=== PATIENT | male | born 2005 | race Hispanic/Latino ===

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

== ENCOUNTER 2024-10-19 05:36 | Emergency (ER) | payer OTHER, SELFPAY ==
[2024-10-19] MEDS ORDERED: MORPHINE 4 MG/ML SYR ONE ×2 (05:55→08:11)
[2024-10-19] MEDS ORDERED: KETOROLAC 30 MG/ML INJ ONE (05:55)
[2024-10-19] MEDS ORDERED: NA CHLORIDE 0.9% 1,000 ML ONE (05:55)
[2024-10-19] MEDS ORDERED: LORazepam 2 MG/ML VIAL ONE (05:55)
[2024-10-19 06:22] LABS: Absolute Basophils 0.1 K/uL (0-0.5); Absolute Eosinophils 0.1 K/uL (0-0.5); Absolute Lymphocytes (CBC) 4.1 K/uL (0.7-4.9); Absolute Monocytes 0.8 K/uL (0.1-1.3); Absolute Neutrophil 8.5 K/uL (1.8-8.0); Basophils % 0.6 % (0-1.3); Hematocrit 41.7 % (39.6-49.0); Hemoglobin 14.9 g/dL (13.6-17.9); Lymphocytes % 30.1 % (15.3-44.8); MCH 31.6 pg (27.0-35.0); MCHC 35.7 g/dL (32.0-36.0); MCV 88.5 fL (80-100); MPV 7.4 fL (7.6-11.3); Monocytes % 6.1 % (3.3-12.3); Neutrophils % 62.2 % (41.7-73.7); Platelets 459 thou/uL (152-406); RBC Red Blood Cell Count 4.72 M/uL (4.33-5.43); Red Cell Distribution Width 12.7 % (12.1-15.2)
[2024-10-19 06:56] LABS: Anion Gap 18.2 mEq/L (5.0-15.0); Potassium 3.2 mEq/L (3.5-5.1)
--- NOTE | 2024-10-19 08:41 | ER ---
Nurse's Notes [facility] Name: Zaki Ma Age: 19 yrs Sex: Male : 2005 Arrival Date: 10/19/2024 Time: 05:36 Bed 5 Private MD: Diagnosis: Right ankle bimalleolar fracture with lateral displacement. Initial encounter Presentation: 10/19 05:50 Chief complaint: Patient states: I tripped in a hole and I think I broke my ankle. bm8 Coronavirus screen: At this time, the client does not indicate any symptoms associated with coronavirus-19. Ebola Screen: Patient negative for fever greater than or equal to 101.5 degrees Fahrenheit, and additional compatible Ebola Virus Disease symptoms Patient denies exposure to infectious person. Patient denies travel to an Ebola-affected area in the 21 days before illness onset. No symptoms or risks identified at this time. Initial Sepsis Screen: Does the patient meet any 2 criteria? No. Patient's initial sepsis screen is negative. Does the patient have a suspected source of infection? No. Patient's initial sepsis screen is negative. Risk Assessment: Do you want to hurt yourself or someone else? Patient reports no desire to harm self or others. Onset of symptoms was October 19, 2024 at 05:30. 05:50 Method Of Arrival: Wheelchair bm8 05:50 Acuity: FABIOLA 2 bm8 Triage Assessment: 05:51 General: Appears distressed, uncomfortable, Behavior is Smells of alcohol. Pain: bm8 Complains of pain in right leg Pain radiates to right leg Pain currently is 10 out of 10 on a pain scale. Quality of pain is described as aching, throbbing. EENT: No deficits noted. No signs and/or symptoms were reported regarding the EENT system. Neuro: No deficits noted. Level of Consciousness is awake, alert, obeys commands, Oriented to person, place, time, situation, Appropriate for age. Cardiovascular: Denies chest pain, Capillary refill < 3 seconds in bilateral fingers Patient's skin is warm and dry. Respiratory: Airway is patent Respiratory effort is even, unlabored, Respiratory pattern is regular, symmetrical, Breath sounds are clear bilaterally. GI: No signs and/or symptoms were reported involving the gastrointestinal system. : No signs and/or symptoms were reported regarding the genitourinary system. Derm: No signs and/or symptoms reported regarding the dermatologic system. Musculoskeletal: Bony deformity noted of right ankle and anterior aspect of right ankle Swelling present in right leg Reports pain in right leg Pain is 10 out of 10 on a pain scale. Historical: - Allergies: 05:51 No Known Allergies; bm8 - Home Meds: 05:51 None [Active]; bm8 - PMHx: 05:51 None; bm8 - PSHx: 05:51 None; bm8 - Immunization history:: Adult Immunizations up to date. - Infectious Disease History:: Denies. - Social history:: Smoking status: Patient denies any tobacco usage or history of. Patient uses alcohol, only on a social basis. Patient/guardian denies using street drugs. - Family history:: not pertinent. Screenin:18 [facility] ED Fall Risk Assessment (Adult) History of falling in the last 3 months, bm8 including since admission Yes- single mechanical fall (1 pt) Confusion or Disorientation Yes (5 pts) Intoxicated or Sedated Yes (3 pts) Impaired Gait Yes (1 pt) Mobility Assist Device Used Yes (1 pt) Altered Elimination No (0 pt) Score/Fall Risk Level 3 or more points = High Risk Oriented to surroundings, Maintained a safe environment, Educated pt \T\ family on fall prevention, incl call for assistance when getting out of bed, Assessed \T\ reinforced patient's understanding of fall precautions, Hourly rounding (assess needs \T\ fall precautionary measures) done, Used ambulatory aids as needed (educated on \T\ assisted with), Used gait belt as appropriate. Abuse screen: Denies threats or abuse. Nutritional screening: No deficits noted. Tuberculosis screening: No symptoms or risk factors identified. Assessment: 06:18 Reassessment: see triage assessment. bm8 07:02 Reassessment: Patient and/or family updated on plan of care and expected duration. Pain bm8 level reassessed. Patient is alert, oriented x 3, equal unlabored respirations, skin warm/dry/pink. Pain: Complains of pain in right leg Pain currently is 6 out of 10 on a pain scale. Neuro: No deficits noted. Level of Consciousness is awake, alert, obeys commands, Oriented to person, place, time, situation, Appropriate for age. 09:15 Reassessment: Patient appears in no apparent distress at this time. No changes from ld1 previously documented assessment. Patient and/or family updated on plan of care and expected duration. Pain level reassessed. Vital Signs: 05:50 BP 140 / 79; Pulse 124; Resp 20; Temp 98.6; Pulse Ox 100% ; Weight 99.79 kg; Height 5 bm8 ft. 7 in. ; Pain 10/10; 06:18 BP 119 / 80; Pulse 112; Resp 24; Temp 98.6; Pulse Ox 99% ; Pain 8/10; bm8 07:02 BP 161 / 106; Pulse 116; Resp 22; Temp 98.6; Pulse Ox 100% ; Pain 0/10; bm8 05:50 Body Mass Index 34.46 (99.79 kg, 170.18 cm) bm8 05:50 Pain Scale: Adult bm8 06:18 Pain Scale: Adult bm8 07:02 Pain Scale: Adult bm8 [place] Coma Score: 06:18 Eye Response: spontaneous(4). Motor Response: obeys commands(6). Verbal Response: bm8 oriented(5). Total: 15. 07:02 Eye Response: spontaneous(4). Motor Response: obeys commands(6). Verbal Response: bm8 oriented(5). Total: 15. 08:34 Eye Response: spontaneous(4). Motor Response: obeys commands(6). Verbal Response: sp4 oriented(5). Total: 15. ED Course: 05:37 Patient arrived in ED. jj6 05:46 Todd Sawant MD is Attending Physician. sp4 05:50 Jarvis Lozano, RN is Primary Nurse. bm8 05:51 Triage completed. bm8 05:51 Arm band placed on left wrist. bm8 06:18 Patient has correct armband on for positive identification. Bed in low position. Call [facility] light in reach. Side rails up X 1. Adult w/ patient. Client placed on continuous cardiac and pulse oximetry monitoring. NIBP monitoring applied. telemetry monitor on. Pulse ox on. NIBP on. Door closed. Noise minimized. Verbal reassurance given. Head of bed elevated. 06:18 Initial lab(s) drawn, by ma, sent to lab. Inserted saline lock: 22 gauge in right bm8 forearm, using aseptic technique. Blood collected. Flushed with 10 mL NS. Patient maintains SpO2 saturation greater than 95% on room air. 06:36 Tib Fib Right XRAY In Process Unspecified. EDMS 07:[address] Huerta called [facility] [[email or web address]] to start transfer talked to Manda. 08 Dr Tarun james Mayes accepted pt to [facility] [[email or web address] 08 Admin approval Natalia Martinez to [facility] ER report [phone]. Fax number [phone]. called [facility] for transfer talked to Sharath. 08:25 Orthoglass splint: Posterior short lleg splint applied on right leg. em1 09:36 No provider procedures requiring assistance completed. Patient transferred, IV remains ld1 in place. Administered Medications: 06:17 Drug: morphine IVP or IV 4 mg IVP once over 4 mins Route: IVP; Infused Over: 4 mins; bm8 Site: right forearm; 07:04 Follow up: Response: No adverse reaction bm8 06:17 Drug: Ketorolac IVP 30 mg IVP once Route: IVP; Site: right forearm; bm8 07:04 Follow up: Response: No adverse reaction bm8 06:17 Drug: Ativan IVP 1 mg IVP once Route: IVP; Site: right forearm; bm8 07:04 Follow up: Response: No adverse reaction bm8 06:18 Drug: NS 0.9% IV 1000 ml IV at 1000 ml once; to be given as a bolus over 60 minutes bm8 Route: IV; Rate: 1000 ml; Site: right forearm; 07:03 Follow up: Response: No adverse reaction; IV Status: Completed infusion bm8 07:52 CANCELLED (Physician Discretion): [id number] mg IVP once bp 08:19 Drug: morphine IVP or IV 4 mg IVP once over 4 mins Route: IVP; Infused Over: 4 mins; ld1 Site: right wrist; Medication: 06:18 VIS not applicable for this client. bm8 Outcome: 08:40 ER care complete, transfer ordered by sp4 09:37 Transferred by ground EMS ld1 09:37 Condition: stable 09:37 Instructed on the need for transfer, 09:37 Patient left the ED. ld1 Signatures: Dispatcher [employer] EDMS Arlene Galloway Eric em1 Radha Hernandez RN RN ld1 Madhuri [email or web address] Todd Sawant MD MD sp4 Jarvis Lozano RN RN bm8 Jj Nova RN bp Corrections: (The following items were deleted from the chart) 10:42 10:[address] Huerta called [facility] [[email or web address]] to start transfer talked to Manda. 818 Dr Tarun Mayes accepted pt to [facility] [[email or web address]]. 818 Admin approval Natalia Martinez to [facility] ER report [phone]. Fax number [phone]. called [facility] for transfer talked to Rob. james
--- NOTE | 2024-10-19 08:41 | EDPHYS ---
Physician Documentation [facility] Name: Zaki Ma Age: 19 yrs Sex: Male : 2005 Arrival Date: 10/19/2024 Time: 05:36 Bed 5 Private MD: ED Physician Todd Sawant HPI: 10/19 08:34 This 19 yrs old Male presents to ER via Wheelchair with complaints of Ankle sp4 Injury. 08:34 Patient presents with acute right ankle injury associated with moderate to severe right sp4 ankle pain also deformity deviation laterally.. Historical: - Allergies: 05:51 No Known Allergies; bm8 - Home Meds: 05:51 None [Active]; bm8 - PMHx: 05:51 None; bm8 - PSHx: 05:51 None; bm8 - Immunization history:: Adult Immunizations up to date. - Infectious Disease History:: Denies. - Social history:: Smoking status: Patient denies any tobacco usage or history of. Patient uses alcohol, only on a social basis. Patient/guardian denies using street drugs. - Family history:: not pertinent. ROS: 08:34 Constitutional: Negative for fever, chills, and weight loss, positive for acute right sp4 ankle injury and deformity. 08:34 All other systems are negative, Exam: 08:34 Constitutional: This is a well developed, well nourished patient who is awake, alert, sp4 moderate distress secondary to pain Head/Face: Normocephalic, atraumatic. Eyes: Pupils equal round and reactive to light, extra-ocular motions intact. Lids and lashes normal. Conjunctiva and sclera are not injected. Cornea within normal limits. Periorbital areas with no swelling, redness, or edema. ENT: Nares patent. No nasal discharge, no septal abnormalities noted. Tympanic membranes are normal and external auditory canals are clear. Oropharynx with no redness, swelling, or masses, exudates, or evidence of obstruction, uvula midline. Mucous membranes moist. Neck: Trachea midline, no thyromegaly or masses palpated, and no cervical lymphadenopathy. Supple, full range of motion without nuchal rigidity, or vertebral point tenderness. Chest/axilla: Normal chest wall appearance and motion. Nontender with no deformity. No lesions are appreciated. Cardiovascular: Regular rate and rhythm with a normal S1 and S2. No gallops, murmurs, or rubs. Normal PMI, no JVD. No pulse deficits. Respiratory: Lungs have equal breath sounds bilaterally, clear to auscultation and percussion. No rales, rhonchi or wheezes noted. No increased work of breathing, no retractions or nasal flaring. Abdomen/GI: Soft, with normal bowel sounds. No distension or tympany. No guarding or rebound. No evidence of tenderness throughout. Back: No spinal tenderness. No costovertebral tenderness. Skin: Warm, dry with normal turgor. Normal color with no rashes, no lesions, and no evidence of cellulitis. MS/ Extremity: Pulses equal, no cyanosis. Neurovascular intact. Moderate to severe right ankle tenderness right ankle deformity with deviation to the right indicative of right ankle fracture dislocation. Neuro: Awake and alert, GCS 15, oriented to person, place, time, and situation. Cranial nerves II-XII grossly intact. Motor strength 5/5 in all extremities. Sensory grossly intact. Psych: Awake, alert, with orientation to person, place and time. Behavior, mood, and affect are within normal limits Vital Signs: 05:50 BP 140 / 79; Pulse 124; Resp 20; Temp 98.6; Pulse Ox 100% ; Weight 99.79 kg; Height 5 bm8 ft. 7 in. ; Pain 10/10; 06:18 BP 119 / 80; Pulse 112; Resp 24; Temp 98.6; Pulse Ox 99% ; Pain 8/10; bm8 07:02 BP 161 / 106; Pulse 116; Resp 22; Temp 98.6; Pulse Ox 100% ; Pain 0/10; bm8 05:50 Body Mass Index 34.46 (99.79 kg, 170.18 cm) bm8 05:50 Pain Scale: Adult bm8 06:18 Pain Scale: Adult bm8 07:02 Pain Scale: Adult bm8 [place] Coma Score: 06:18 Eye Response: spontaneous(4). Motor Response: obeys commands(6). Verbal Response: bm8 oriented(5). Total: 15. 07:02 Eye Response: spontaneous(4). Motor Response: obeys commands(6). Verbal Response: bm8 oriented(5). Total: 15. 08:34 Eye Response: spontaneous(4). Motor Response: obeys commands(6). Verbal Response: sp4 oriented(5). Total: 15. Procedures: 08:37 Splinting: Splint applied to right calf, right Achilles and right heel using Orthoglass sp4 splint, Right short leg fiberglass splint posterior location.. applied by myself. post reduction film - reveals improved alignment, Examined by me, post splint application: neurovascular intact, 2+ distal pulses palpable, brisk capillary refill noted, Patient tolerated well, Splint applied for stability.. MDM: 06:45 Medical Screening Exam initiated sp4 08:37 Differential diagnosis: fracture, sprain, foreign body, arthritis, gout, cellulitis. sp4 Data reviewed: vital signs, nurses notes, old medical records, lab test result(s), radiologic studies, plain films. 08:39 Consideration of Admission/Observation Escalation of care including sp4 admission/observation considered. Management of patient was discussed with the following: [employer]: [facility] orthopedic surgeon. ED course: Acute right ankle bimalleolar ankle fracture with lateral displacement. Splint applied for stability. Pulses intact. Patient discussed with [facility] and accepted there for orthopedic surgery evaluation. Patient was made n.p.o.. 10/19 05:47 Order name: Basic Metabolic Panel 4 10/19 05:47 Order name: CBC with Diff 4 10/19 05:48 Order name: Alcohol Level 4 10/19 05:48 Order name: Tib Fib Right XRAY sp4 10/19 05:47 Order name: IV Saline Lock; Complete Time: 06:17 sp4 10/19 05:47 Order name: Labs collected and sent; Complete Time: 06:17 sp4 10/19 05:47 Order name: O2 Per Protocol; Complete Time: 06:17 sp4 10/19 05:47 Order name: O2 Sat Monitoring; Complete Time: 06:17 sp4 10/19 08:20 Order name: NPO; Complete Time: 08:25 davy Administered Medications: 06:17 Drug: morphine IVP or IV 4 mg IVP once over 4 mins Route: IVP; Infused Over: 4 mins; bm8 Site: right forearm; 07:04 Follow up: Response: No adverse reaction bm8 06:17 Drug: Ketorolac IVP 30 mg IVP once Route: IVP; Site: right forearm; bm8 07:04 Follow up: Response: No adverse reaction bm8 06:17 Drug: Ativan IVP 1 mg IVP once Route: IVP; Site: right forearm; bm8 07:04 Follow up: Response: No adverse reaction bm8 06:18 Drug: NS 0.9% IV 1000 ml IV at 1000 ml once; to be given as a bolus over 60 minutes bm8 Route: IV; Rate: 1000 ml; Site: right forearm; 07:03 Follow up: Response: No adverse reaction; IV Status: Completed infusion bm8 07:52 CANCELLED (Physician Discretion): [id number] mg IVP once bp 08:19 Drug: morphine IVP or IV 4 mg IVP once over 4 mins Route: IVP; Infused Over: 4 mins; ld1 Site: right wrist; Disposition Summary: 10/19/24 08:40 Transfer Ordered Notes: Transfer Location: [facility] sp4 Reason: Higher level of care sp4 Condition: Stable sp4 Problem: new sp4 Symptoms: have improved sp4 Accepting Physician: [facility] attending surgeon(10/19/24 09:37) ld1 Diagnosis - Right ankle bimalleolar fracture with lateral displacement. Initial encounter sp4 Forms: - Medication Reconciliation Form sp4 - SBAR form sp4 Signatures: Dispatcher [employer] EDMS Oumar Huerta MD MD cha Baxter, Heather, RN RN Radha Greenberg RN RN [email or web address] Todd Sawant MD MD sp4 Jarvis Lozano RN RN bm8 Jj Nova RN bp Corrections: (The following items were deleted from the chart) 06:35 05:48 Foot Right 2 View+RAD.RAD.[email or web address] ordered. EDMS EDMS 07:51 06:47 Conscious Sedation ordered. sp4 bp 07:52 06:47 Etomidate IVP 20 mg IVP once ordered. sp4 bp 07:52 07:43 Etomidate IVP 20 mg IVP once ordered. hb bp 08:20 05:47 Conscious Sedation ordered. sp4 ld1 09:37 08:40 [facility] attending surgeon sp4 ld1
--- NOTE | 2024-10-19 09:21 | RAD REPORT ---
EXAMINATION: XR Tib Fib Right CLINICAL INDICATION: Male, 19 years old. right ankle fracture TECHNIQUE: 2 view radiograph of the right tibia and fibula were obtained. COMPARISON: No prior exam. FINDINGS: Comminuted mildly displaced distal fibular shaft fracture. Normal alignment otherwise. No e vidence of arthropathy or other focal bone lesion. Soft tissue swelling about the distal lower leg. IMPRESSION: Comminuted mildly displaced distal fibular shaft fracture.
[2024-10-19 09:41] VITALS: TEMP 98.6
[2024-10-19 09:45] VITALS: BP 161/106; O2SAT 100
[2024-10-19 10:39] LABS: Blood Morphology Comment NOT SEEN (NOT SEEN); Platelet Estimate INCR; Platelets, Giant PRESENT; White Blood Cell Scan OK (OK)
== END 2024-10-19 09:37 | disposition short-term general hospital (02) ==
LOC: ER 05:36
PROC: 2W3QX1Z Immobilization of Right Lower Leg using Splint (ICD-10-PCS; principal; 2024-10-19)
DX: S82.841A Displaced bimalleolar fracture of right lower leg, initial encounter for closed fracture (principal)
CPT/HCPCS: 36415; 80048; 82077; 85025; 99285; J7030